=== PATIENT | female | born 1955 | race Caucasian/White ===

== ENCOUNTER → 2016-09-07 | Outpatient (CLI) | payer BC ==
--- NOTE | 2016-09-07 11:42 | REPMRS ---
Patient History The patient states she had a clinical breast exam in 08/2016. Patient is postmenopausal. Family history of colorectal cancer in sister under age 50 and ovarian cancer in mother at age 50 or over. Taking estrogen for 6 years. Digital Woman Screen Mammo: September 07, 2016 - Exam #: [id number] Bilateral CC and MLO view(s) were taken. Technologist: Molly Martínez, Technologist Prior study comparison: July 19, 2015, digital woman screen mammo performed at [facility]. July 20, 2014, digital woman screen mammo performed at [facility]. June 23, 2013, digital woman screen mammo performed at [facility]. FINDINGS: There are scattered fibroglandular densities. There has been no change in the appearance of the mammogram from the prior studies. There is a mild amount of scattered fibroglandular density which is fairly symmetric. There is no interval development of dominant mass, architectural distortion, or clustered microcalcification suggestive of malignancy. ASSESSMENT: BI-RADS/ACR category 1 mammogram. Negative. Recommendation Routine screening mammogram in 1 year (for women over age 40). This mammogram was interpreted with the aid of an FDA-approved computer-aided dectection system. Electronically Signed By: Geovanny Abbott MD 09/07/16 [id number]
== END ==
LOC: M WHC 09:31
PROVIDERS: ATTEND Nurse Practitioner Family
DX: Z12.31 Encounter for screening mammogram for malignant neoplasm of breast (principal); Z78.0 Asymptomatic menopausal state; Z80.41 Family history of malignant neoplasm of ovary

== ENCOUNTER 2017-07-08 08:53 | Inpatient (IN) | payer BC ==
[2017-06-21 10:03] VITALS: BP 132/80
--- NOTE | 2017-07-04 23:06 | HPE ---
DATE OF SCHEDULED ADMISSION: 07/08/2017 PREOP HISTORY AND PHYSICAL CHIEF COMPLAINT: Right knee pain. HISTORY OF PRESENT ILLNESS: Laura is a pleasant 62-year-old female with progressively worsening right knee pain and stiffness. She has failed to improve with conservative treatment. She has elected for surgery for her continued symptoms. She has pain with weightbearing activities and her activities of daily living. X-rays of her knee are notable for advanced osteoarthritis of the right knee joint. She has consented for a right total knee arthroplasty by Dr. Petros Vilchis. Medical optimization was performed by Dr. Gordo Gordon's office. ALLERGIES: No known allergies. CURRENT MEDICATIONS: - omeprazole 40 mg a day - lisinopril 10 mg a day - vitamin D 2000 units a day - multivitamin once a day - flaxseed oil PAST MEDICAL HISTORY: Includes high blood pressure and acid reflux. PAST SURGICAL HISTORY: Includes total hysterectomy and finger and ankle surgery. 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 FAMILY HISTORY: Noncontributory. REVIEW OF SYSTEMS: This patient denies chest pain, heart palpitations, cough, wheezing, difficulty breathing and shortness breath. She denies abdominal pain, nausea, vomiting, diarrhea or constipation. She denies recent upper respiratory infection or urinary tract infection symptoms. She does complain of persistent pain in her right knee and pain with weightbearing activities in the right knee. PHYSICAL EXAMINATION: General: She is a well-nourished, well-developed, in no acute distress, alert female patient who walks with a moderate limp, favoring the right lower extremity, and does not use assistive devices. Vital signs: She is 5 feet 1 inch tall, weighs 149 pounds with a temperature of 98.3, blood pressure 138/62, pulse of 90 and respirations of 18. Neck was supple without adenopathy or jugular venous distension. There were no carotid bruits appreciated upon auscultation. Lungs were clear to auscultation without rales or wheeze throughout. Heart: Regular rate and rhythm. Abdomen: Bowel sounds were present. Extremities: Examination of the knee revealed intact skin. She had decreased range of motion secondary to pain and stiffness. The limb was neurovascularly intact. LABORATORY DATA: Chest x-ray Showed no acute cardiopulmonary disease processes. EKG showed sinus rhythm at 66 beats per minute. UA showed 3+ leukocyte esterase, 1+ blood, 21 white blood cells and 5 red blood cells, otherwise within normal limits with a specific gravity of 1.015. Pro-time 12.9, INR 0.97, glucose 84, BUN 16, creatinine 0.85. Sodium 142, potassium 4.4. CBC was within normal limits. Sedimentation rate was 9. Urine culture showed no clinically significant growth. Nasal and sinus culture showed normal reji. IMPRESSION: Symptomatic osteoarthritis of the right knee joint. PLAN: Consented for a right total knee arthroplasty by Dr. Petros Vilchis.
[2017-07-08] VITALS (7 sets, daily range): BP systolic 116–140; BP diastolic 70–92; O2SAT 97
[~2017-07-08] VITALS: Ht 154.9 cm; Wt 67.8 kg
[~2017-07-08 08:53] MED LIST: FLAXOIL3 PO; LISI10TA4 PO; OMEP40CA2 PO; VITA200016 PO
[2017-07-08] MEDS ORDERED: ACETAMINOPHEN 500 MG TAB PO ONE (09:00)
[2017-07-08] MEDS ORDERED: LR 1,000 ML IV ONE (09:00)
[2017-07-08] MEDS: OMEPRAZOLE 20 MG CAP PO SCH (09:00)
[2017-07-08] MEDS ORDERED: MIDAZOLAM INJ 2 MG/2 ML VIAL (J2250) As Ordered ONE ×2 (10:47→12:48)
[2017-07-08] MEDS ORDERED: fentaNYL 100 MCG/2 ML INJECTION (J3010) As Ordered ONE ×2 (10:47→12:48)
[2017-07-08] MEDS ORDERED: BUPIVACAINE LIPOSOME/PF 1.3% 20 ML VIAL (13.3MG/ML)(EXPAREL) As Ordered ONE (11:00)
[2017-07-08] MEDS ORDERED: EPINEPHrine INJ 1 MG/ML 1ML AMP As Ordered ONE (11:00)
[2017-07-08] MEDS ORDERED: ceFAZolin 1GM INJ (J0690) As Ordered ONE (11:00)
[2017-07-08] MEDS ORDERED: TRANEXAMIC ACID 100 MG/ML 10ML VIAL As Ordered ONE (11:00)
[2017-07-08] MEDS ORDERED: BUPIVACAINE HCL 0.25% 10 ML VIAL As Ordered ONE (11:24)
[2017-07-08] MEDS ORDERED: MIDAZOLAM INJ 2 MG/2 ML VIAL (J2250) IV ONE (11:30)
[2017-07-08] MEDS ORDERED: fentaNYL 100 MCG/2 ML INJECTION (J3010) IV ONE (11:30)
[2017-07-08] MEDS ORDERED: ONDANSETRON 4MG/2ML VIAL (J2405) As Ordered ONE (12:48)
[2017-07-08] MEDS ORDERED: PROPOFOL 200 MG/20 ML VIAL As Ordered ONE (12:48)
[2017-07-08] MEDS ORDERED: LIDOCAINE 2% INJ 100 MG/5 ML SDV (FOR ANES.) As Ordered ONE (12:48)
[2017-07-08] MEDS ORDERED: PHENYLephrine HCL 500 MCG/5 ML (100MCG/ML) SYRINGE (J2370) As Ordered ONE ×2 (12:49→13:05)
[2017-07-08] MEDS ORDERED: ePHEDrine SULFATE 25 MG/5 ML(5MG/ML) SYRINGE As Ordered ONE (13:05)
[2017-07-08] MEDS ORDERED: ROPIvacaine 0.5% 30 ML INJECTION (J2795) ONE (13:08)
[2017-07-08] MEDS ORDERED: dexameTHASONE 10 MG/1 ML VIAL PRES.FREE (J1100) ONE (13:08)
[2017-07-08] MEDS ORDERED: MORPHINE 1MG/ML IN 0.9% NACL 100ML IV BAG As Ordered ONE (14:03)
[2017-07-08] MEDS ORDERED: NALBUPHINE HCL 10 MG/ML AMP (J2300) IV PRN (14:30)
[2017-07-08] MEDS ORDERED: ONDANSETRON 4MG/2ML VIAL (J2405) IV PRN ×2 (14:30)
[2017-07-08] MEDS ORDERED: diphenhydrAMINE INJ 50MG/ML VIAL (J1200) IV PRN (14:30)
[2017-07-08] MEDS ORDERED: MORPHINE 2 MG/ML 1ML SYRINGE IV PRN (14:30)
[2017-07-08] MEDS ORDERED: fentaNYL 100 MCG/2 ML INJECTION (J3010) IV PRN (14:30)
[2017-07-08] MEDS ORDERED: EPIDURAL/PCA KEYS XX PRN (14:30)
[2017-07-08] MEDS ORDERED: ACETAMINOPHEN TAB 650MG DOSE (2X325MG) PO PRN (14:30)
[2017-07-08] MEDS ORDERED: FLEET ENEMA PR PRN (14:30)
[2017-07-08] MEDS ORDERED: LR 1,000 ML IV SCH (14:30)
[2017-07-08] MEDS ORDERED: NALOXONE INJ 0.4 MG/1 ML VIAL (J2310) IV PRN (14:30)
[2017-07-08] MEDS ORDERED: MORPHINE 1MG/ML IN 0.9% NACL 100ML IV BAG IV PRN (14:30)
--- NOTE | 2017-07-08 16:56 | RO ---
DATE OF PROCEDURE: 07/08/2017 PREOPERATIVE DIAGNOSIS: Right knee degenerative arthritis. POSTOPERATIVE DIAGNOSIS: Right knee degenerative arthritis. PROCEDURE: Right total knee arthroplasty using a size 3 cruciate retaining femoral component, a size 2.5 tibial tray with a 32 mm patellar button and a 10 mm rotating platform polyethylene insert. All components were cemented. Prosthesis made by [employer]. It was a PFC knee. SURGEON: Petros Martinez MD BULK FLUIDS HANDLER: Mr. Erasto Greene ANESTHESIA: Spinal with right femoral nerve block. COMPLICATIONS: None. ESTIMATED BLOOD LOSS: Less than 20 mL. DESCRIPTION OF PROCEDURE: Antibiotics were given intravenously preoperatively, then a successful right femoral nerve block and then spinal anesthetic was induced. Then, a tourniquet was placed on the right upper thigh and not inflated. Then, the leg was elevated and after appropriate time-out the tourniquet was inflated. A longitudinal incision was then made for a medial parapatellar approach to the knee. Bovie cautery was used to coagulate the crossing vessels. Medial parapatellar arthrotomy performed. Subperiosteal dissection around the proximal medial and lateral tibia plateaus was then performed. Then, we everted the patella and flexed the knee. A drill was placed down the center of the femoral canal, followed by the distal femoral cutting jig set at 5 degree valgus cut at 10 mm resection level for a right knee. Distal femoral cut was then performed. AP sizing jig measured for a size 3 component, which is pinned in position, followed by the 3 degree external rotation block and then the 4-in-1 block applied. The anterior, posterior chamfer cuts were then performed taking great care to protect the surrounding soft tissues. We then exposed the proximal tibia, made sure we were parallel to the mechanical axis, estimated thereby with extramedullary alignment jig for the tibial cut. We referenced off the medial tibial condyle set at 4 mm resection level. The block was pinned into position at that point, and then the secondary check was made with an extramedullary ben and we did appear to be parallel top the mechanical axis. Proximal tibial osteotomy was then performed. Then, we placed the lamina systems applications programming lead medially and performed a completion lateral meniscectomy with debridement of the posterior lateral osteophytes. We then placed the lamina systems applications programming lead laterally and performed a completion medial meniscectomy and debridement of the posterior medial osteophytes. The spacer block was then applied. The 10 mm actually fit beautifully with good symmetry between flexion and extension spaces there. She was very stable to varus and valgus stress testing both in flexion and extension. We then exposed the proximal tibia, sized for a 2.5 tray, which is pinned into position, followed by the reamer and broach. Then, the trial polyethylene applied. The trial femoral component was applied. We brought the knee into the extension, everted the patella, performed the patellar osteotomy, sized for a 32 button, and then, the trial was placed and the patellofemoral tracking was anatomic. We then drilled the lug holes for the femur. Removed all the trial components and placed Exparel in the periosteal tissues around the femur and the tibia and the capsule, and then the Mr. Alexanderbeverly mixed the cement on the back table as I prepared the bony surfaces for cementing with a copious amount of pulsatile lavage irrigant solution. Once all the components surfaces were thoroughly dried, I cemented the tibial tray and removed excess cement. Placed the polyethylene. Cemented the femoral component and removed excess cement. Brought the knee into extension, cemented the patellar button, removed excess cement and held this position in extension until the cement hardened, and we copiously pulsatile lavage irrigated the knee joint again as we were waiting for the cement to harden. Tranexamic acid was then placed in the knee. Then, we began closing the arthrotomy with two #1 PDS sutures at the apex, one at the medial parapatellar area, then a running #1 Stratafix double armed was used to close the capsule. Tourniquet was then released. We irrigated between layers. Closed the deep subdermal tissues with interrupted #2-0 PDS suture. The skin was closed with carolina and covered by Adaptic, dry sterile bulky dressing. She was then transferred to the recovery room in stable condition. There were no intraoperative complications.
[2017-07-08] MEDS: LR 1,000 ML IV SCH (16:59)
[2017-07-08] MEDS ORDERED: WARFARIN SOD 5 MG TAB PO ONE (17:00)
--- NOTE | 2017-07-08 18:03 | IPNPDOC ---
Subjective Date Seen The patient was seen on 07/08/17. Subjective Chief Complaint/HPI The patient is a 62-year-old female admitted with a reason for visit of Right Knee Arthritis. Events since last encounter No chest pain, no shortness of breath, has lower abdominal pain, trouble passing urine Constitutional: Denies: Chills, Fever Cardiovascular: Denies: Chest Pain Gastrointestinal: Reports: Abdominal Pain, Denies: Nausea, Vomiting Genitourinary: Reports: Retention Objective Physical Examination General Exam: Positive: Alert, Cooperative, No Acute Distress ENT Exam: Positive: Mucous membr. moist/pink Neck Exam: Positive: Supple Chest Exam: Positive: Clear to auscultation, Negative: Rales, Rhonchi, Wheezing Heart Exam: Positive: Rate Normal, Regular Rhythm Abdomen Exam: Positive: BS Hypoactive, Soft, Other (suprapubic fullness and tenderness) Assessment /Plan Problems (1) Arthritis of right knee Status: Acute Problem Text: Pain management, dvt prophylaxis, activity, discharge, gi regimen per ortho. I discussed urinary retention with Ankita Beltran. Will straight cath once. (2) HTN (hypertension) Status: Chronic Problem Specific Plan: Monitor Clinically Problem Text: hold jhoana inhibitor in post op setting (3) GERD (gastroesophageal reflux disease) Status: Chronic Problem Text: continue ppi (4) Hyperlipidemia Problem Text: diet controlled (5) Urinary retention Status: Acute Problem Text: in post op setting, management per ortho. Patient does not have a casper catheter Plan/VTE VTE Prophylaxis Ordered?: Yes VS, I&O, 24H, Fishbone Vital Signs/I&O Vital Signs Date Time Temp Pulse Resp B/P (MAP) Pulse Ox O2 Delivery O2 Flow Rate FiO2 07/08/17 17:30 98.6 85 14 138/76 (96) 97 Room Air 07/08/17 12:05 2 I&O- Last 24 Hours up to 6 AM 07/09/17 06:00 Intake Total 1800 ml Output Total 450 ml Balance 1350 ml GERALD ROSE MD Jul 08, 2017 18:02
[2017-07-08] MEDS: RAMELTEON 8 MG TAB (ROZEREM) PO SCH (23:35)
[2017-07-09 02:00] VITALS: BP 118/70
[2017-07-09] MEDS: LR 1,000 ML IV SCH (02:30)
[2017-07-09 06:00] VITALS: BP 121/84
[2017-07-09] MEDS ORDERED: PERCOCET 5MG/325MG TAB PO PRN (06:30)
[2017-07-09 06:40] LABS: MEAN CORPUSCULAR HEMOGLOBIN 29.9 pg (27.0-33.0); MEAN CORPUSCULAR HGB CONC 35.4 g/dl (32.0-36.5); MEAN CORPUSCULAR VOLUME 84.4 fl (80.0-96.0); PLATELET COUNT, AUTOMATED 199 10^3/uL (150-450); RED CELL DISTRIBUTION WIDTH 12.3 % (11.5-14.5); WHITE BLOOD COUNT 9.9 10^3/uL (4.0-10.0)
[2017-07-09 06:49] LABS: INR 1.16
[2017-07-09 07:20] LABS: ANION GAP 6 MEQ/L (8-16); BLOOD UREA NITROGEN 20 MG/DL (7-18); CALCIUM LEVEL 8.7 MG/DL (8.8-10.2); CARBON DIOXIDE LEVEL 28 MEQ/L (21-32); CHLORIDE LEVEL 105 MEQ/L (98-107); CREATININE FOR GFR 0.92 MG/DL (0.55-1.02); GLOMERULAR FILTRATION RATE > 60.0 (>45); GLUCOSE, FASTING 106 MG/DL (80-110); POTASSIUM SERUM 4.6 MEQ/L (3.5-5.1); SODIUM LEVEL 139 MEQ/L (136-145)
[2017-07-09] MEDS: MIRALAX *UNIT DOSE* 17GM PACKET PO SCH (08:33)
[2017-07-09] MEDS: MOM 30ML SUSPENSION UDC PO SCH (08:33)
[2017-07-09] MEDS: OMEPRAZOLE 20 MG CAP PO SCH (08:33)
[2017-07-09] MEDS: SENOKOT S TAB PO SCH ×2 (08:33→20:52)
[2017-07-09] MEDS: ONDANSETRON 4 MG TAB (S0181) PO PRN ×3 (08:33→20:52)
[2017-07-09] MEDS: LISINOPRIL 10 MG TAB PO SCH (09:00)
[2017-07-09 10:00] VITALS: BP 111/61
--- NOTE | 2017-07-09 10:55 | REP ---
Clinical: Status post knee replacement. Technique AP and cross-table lateral views. Findings: The patient is status post right knee replacement with normal positioning and appearance to the femoral and tibial components. Overlying postsurgical changes appreciated. Impression: Status post right knee replacement. Signed by Darryn Carrillo MD 07/09/2017 10:47 A
--- NOTE | 2017-07-09 11:44 | IPNPDOC ---
Subjective Date Seen The patient was seen on 07/09/17. Subjective Chief Complaint/HPI The patient is a 62-year-old female admitted with a reason for visit of Right Knee Arthritis. Events since last encounter Complains of some nausea this morning . Does not have any appetite, no fever or chills, no chest pain or sob , no abdominal pain or diarrhea. Pain is controlled. Objective Physical Examination General Exam: Positive: Alert, Cooperative, No Acute Distress ENT Exam: Positive: Mucous membr. moist/pink Neck Exam: Positive: Supple Chest Exam: Positive: Clear to auscultation, Negative: Rales, Rhonchi, Wheezing Heart Exam: Positive: Rate Normal, Regular Rhythm Abdomen Exam: Positive: BS Hypoactive, Soft, Other (suprapubic fullness and tenderness) Assessment /Plan Problems (1) S/P total knee arthroplasty Problem Text: For advanced osteoarthritis. Pain management, dvt prophylaxis, activity, discharge, gi regimen per ortho. (2) HTN (hypertension) Status: Chronic Problem Specific Plan: Monitor Clinically Problem Text: will restart lisinopril with hold parameters. (3) GERD (gastroesophageal reflux disease) Status: Chronic Problem Text: continue ppi (4) Hyperlipidemia Problem Text: diet controlled (5) Urinary retention Status: Resolved Problem Text: in post op setting, had straight cath once. Plan/VTE VTE Prophylaxis Ordered?: Yes VS, I&O, 24H, Fishbone Vital Signs/I&O Vital Signs Date Time Temp Pulse Resp B/P (MAP) Pulse Ox O2 Delivery O2 Flow Rate FiO2 07/09/17 11:27 16 07/09/17 10:00 98.0 85 111/61 (78) 96 Room Air 07/08/17 18:19 0.0 I&O- Last 24 Hours up to 6 AM 07/10/17 06:00 Intake Total 230 ml Output Total 200 ml Balance 30 ml Laboratory Data 24H LABS Laboratory Tests 2 07/09/17 06:20: Nucleated Red Blood Cells % (auto) 0.0, Prothrombin Time 15.0H, Prothromb Time International Ratio 1.16, Anion Gap 6L, Glomerular Filtration Rate > 60.0, Blood Urea Nitrogen 20H, Creatinine 0.92, Sodium Level 139, Potassium Level 4.6 , Chloride Level 105, Carbon Dioxide Level 28, Calcium Level 8.7L CBC/BMP Laboratory Tests 07/09/17 06:20 Red Blood Count 4.11, Mean Corpuscular Volume 84.4, Mean Corpuscular Hemoglobin 29.9, Mean Corpuscular Hemoglobin Concent 35.4, Red Cell Distribution Width 12.3 , Calcium Level 8.7 L TORITO ABDUL MD Jul 09, 2017 11:44
[2017-07-09 14:00] VITALS: BP 118/59
[2017-07-09] MEDS: PERCOCET 5MG/325MG TAB PO PRN ×2 (16:22→20:53)
[2017-07-09] MEDS ORDERED: WARFARIN SOD 5 MG TAB PO ONE (17:00)
[2017-07-09] MEDS: RAMELTEON 8 MG TAB (ROZEREM) PO SCH (20:52)
[2017-07-09 22:00] VITALS: BP 129/64
[2017-07-10] MEDS: PERCOCET 5MG/325MG TAB PO PRN ×2 (01:04→06:59)
[2017-07-10] MEDS: ONDANSETRON 4 MG TAB (S0181) PO PRN ×4 (01:18→16:45)
[2017-07-10 06:00] VITALS: BP 128/65
[2017-07-10 06:59] LABS: MEAN CORPUSCULAR HEMOGLOBIN 28.8 pg (27.0-33.0); MEAN CORPUSCULAR HGB CONC 33.4 g/dl (32.0-36.5); MEAN CORPUSCULAR VOLUME 86.2 fl (80.0-96.0); PLATELET COUNT, AUTOMATED 191 10^3/uL (150-450); RED CELL DISTRIBUTION WIDTH 12.5 % (11.5-14.5); WHITE BLOOD COUNT 8.6 10^3/uL (4.0-10.0)
[2017-07-10 07:26] LABS: ANION GAP 5 MEQ/L (8-16); BLOOD UREA NITROGEN 16 MG/DL (7-18); CALCIUM LEVEL 8.8 MG/DL (8.8-10.2); CARBON DIOXIDE LEVEL 31 MEQ/L (21-32); CHLORIDE LEVEL 102 MEQ/L (98-107); GLOMERULAR FILTRATION RATE > 60.0 (>45); GLUCOSE, FASTING 111 MG/DL (80-110); POTASSIUM SERUM 4.7 MEQ/L (3.5-5.1); SODIUM LEVEL 138 MEQ/L (136-145)
[2017-07-10 07:37] LABS: INR 1.46
[2017-07-10 08:00] VITALS: O2SAT 98
[2017-07-10] MEDS ORDERED: COUM2.5T17 PO (08:55)
[2017-07-10] MEDS ORDERED: TRAM50TA2 PO (08:55)
[2017-07-10] MEDS ORDERED: traMADol 50 MG TAB PO PRN (09:00)
[2017-07-10] MEDS ORDERED: ACETAMINOPHEN 500 MG TAB PO PRN (09:00)
[2017-07-10] MEDS: MOM 30ML SUSPENSION UDC PO SCH (09:43)
[2017-07-10] MEDS: SENOKOT S TAB PO SCH ×2 (09:43→19:59)
[2017-07-10] MEDS: MIRALAX *UNIT DOSE* 17GM PACKET PO SCH (09:43)
[2017-07-10] MEDS: OMEPRAZOLE 20 MG CAP PO SCH (09:43)
[2017-07-10] MEDS: LISINOPRIL 10 MG TAB PO SCH (09:44)
--- NOTE | 2017-07-10 10:33 | IPNPDOC ---
Subjective Date Seen The patient was seen on 07/10/17. Subjective Chief Complaint/HPI The patient is a 62-year-old female admitted with a reason for visit of Right Knee Arthritis. Events since last encounter continues to feel nauseous with narcotics, cannot eat much , no fever or chills , no chest pain or sob , no abdominal pain or diarrhea Objective Physical Examination General Exam: Positive: Alert, Cooperative, No Acute Distress ENT Exam: Positive: Mucous membr. moist/pink Neck Exam: Positive: Supple Chest Exam: Positive: Clear to auscultation, Negative: Rales, Rhonchi, Wheezing Heart Exam: Positive: Rate Normal, Regular Rhythm Abdomen Exam: Positive: BS Hypoactive, Soft, Other (suprapubic fullness and tenderness) Assessment /Plan Problems (1) S/P total knee arthroplasty Problem Text: For advanced osteoarthritis. Pain management, dvt prophylaxis, activity, discharge, gi regimen per ortho. (2) HTN (hypertension) Status: Chronic Problem Specific Plan: Monitor Clinically Problem Text: will restart lisinopril with hold parameters. (3) GERD (gastroesophageal reflux disease) Status: Chronic Problem Text: continue ppi (4) Hyperlipidemia Problem Text: diet controlled (5) Urinary retention Status: Resolved Problem Text: in post op setting, had straight cath once. Plan/VTE VTE Prophylaxis Ordered?: Yes VS, I&O, 24H, Fishbone Vital Signs/I&O Vital Signs Date Time Temp Pulse Resp B/P (MAP) Pulse Ox O2 Delivery O2 Flow Rate FiO2 07/10/17 09:44 112/60 07/10/17 07:29 18 Room Air 07/10/17 06:00 97.9 79 96 07/08/17 18:19 0.0 I&O- Last 24 Hours up to 6 AM 07/11/17 06:00 Intake Total 0 ml Output Total 0 ml Balance 0 ml Laboratory Data 24H LABS Laboratory Tests 2 07/10/17 06:19: Nucleated Red Blood Cells % (auto) 0.0, Prothrombin Time 18.1H, Prothromb Time International Ratio 1.46, Anion Gap 5L, Glomerular Filtration Rate > 60.0, Blood Urea Nitrogen 16, Creatinine 0.80, Sodium Level 138, Potassium Level 4.7, Chloride Level 102, Carbon Dioxide Level 31, Calcium Level 8.8 CBC/BMP Laboratory Tests 07/10/17 06:19 Red Blood Count 4.20, Mean Corpuscular Volume 86.2, Mean Corpuscular Hemoglobin 28.8, Mean Corpuscular Hemoglobin Concent 33.4, Red Cell Distribution Width 12.5 , Calcium Level 8.8 TORITO ABDUL MD Jul 10, 2017 10:33
[2017-07-10 14:00] VITALS: BP 131/74
[2017-07-10] MEDS ORDERED: ONDANSETRON 4MG/2ML VIAL (J2405) IV PRN (15:45)
[2017-07-10] MEDS ORDERED: TAPENTADOL 50 MG TABLET (NUCYNTA) PO PRN (15:45)
[2017-07-10] MEDS ORDERED: SCOPOLAMINE 1.5 MG TRANSDERMAL TOP ONE (16:00)
[2017-07-10] MEDS ORDERED: WARFARIN SOD 5 MG TAB PO ONE (17:00)
[2017-07-10] MEDS: RAMELTEON 8 MG TAB (ROZEREM) PO SCH (19:59)
[2017-07-10 21:48] VITALS: O2SAT 95
[2017-07-10 22:00] VITALS: BP 130/73
[2017-07-11 06:00] VITALS: BP 113/76
[2017-07-11 06:36] LABS: MEAN CORPUSCULAR HEMOGLOBIN 28.6 pg (27.0-33.0); MEAN CORPUSCULAR HGB CONC 33.2 g/dl (32.0-36.5); MEAN CORPUSCULAR VOLUME 86.2 fl (80.0-96.0); PLATELET COUNT, AUTOMATED 206 10^3/uL (150-450); RED CELL DISTRIBUTION WIDTH 12.3 % (11.5-14.5); WHITE BLOOD COUNT 8.7 10^3/uL (4.0-10.0)
[2017-07-11 06:55] LABS: ANION GAP 4 MEQ/L (8-16); BLOOD UREA NITROGEN 15 MG/DL (7-18); CALCIUM LEVEL 9.2 MG/DL (8.8-10.2); CARBON DIOXIDE LEVEL 32 MEQ/L (21-32); CHLORIDE LEVEL 100 MEQ/L (98-107); CREATININE FOR GFR 0.85 MG/DL (0.55-1.02); GLOMERULAR FILTRATION RATE > 60.0 (>45); GLUCOSE, FASTING 103 MG/DL (80-110); INR 1.45; POTASSIUM SERUM 4.8 MEQ/L (3.5-5.1); SODIUM LEVEL 136 MEQ/L (136-145)
[2017-07-11] MEDS: SENOKOT S TAB PO SCH (08:00)
[2017-07-11] MEDS: OMEPRAZOLE 20 MG CAP PO SCH (08:00)
[2017-07-11 08:01] VITALS: BP 113/76
[2017-07-11] MEDS: ONDANSETRON 4 MG TAB (S0181) PO PRN (08:01)
[2017-07-11] MEDS: MIRALAX *UNIT DOSE* 17GM PACKET PO SCH (08:01)
[2017-07-11] MEDS: MOM 30ML SUSPENSION UDC PO SCH (08:01)
[2017-07-11] MEDS: LISINOPRIL 10 MG TAB PO SCH (08:01)
[2017-07-11] MEDS ORDERED: LORATADINE 10 MG TAB PO ONE (08:15)
[2017-07-11 09:30] VITALS: O2SAT 97
--- NOTE | 2017-07-15 18:52 | DSES ---
DATE OF ADMISSION: 07/08/2017 DATE OF DISCHARGE: 07/11/2017 ADMISSION DIAGNOSIS: Osteoarthritis right knee. ATTENDING PHYSICIAN: Dr. Petros Vilchis OTHER DIAGNOSES: Hypertension. Gastric reflux disease. Elevated lipids. She did develop urinary retention during her hospital stay. DISCHARGE DIAGNOSIS: Osteoarthritis right knee status post right total knee arthroplasty. OPERATION PERFORMED: Right total knee arthroplasty. HISTORY: This is a pleasant 62-year-old female patient with progressively worsening right knee pain and stiffness. She failed to improve with conservative management. She was admitted for elective knee replacement on right side. HOSPITAL COURSE: The patient was admitted on the day of surgery, underwent a right total knee arthroplasty which was uneventful. During her hospital course, she did develop an episode of urinary retention that resolved with a straight catheter. On the day of discharge, she was doing well, weightbearing as tolerated on her right lower extremity. She will move her right knee to prevent stiffness. She will use adjusted dose Coumadin and thromboembolism deterrent (AMY) stockings for 30 days postoperative for deep vein thrombosis (DVT) prophylaxis. She will resume her preoperative medications and diet. She was given instructions to include but not limited to wound monitoring, activity limitations. She will use oral pain medications for pain control. She will followup in our office in 10-14 days for surgical followup. Please refer the medical record for further detail. Copy To: Dr. Petros Vilchis
== END 2017-07-11 15:30 | disposition home or self-care (01) | DRG 302 ==
LOC: M OR 08:53 → M MS5PR 15:50
PROVIDERS: ADMIT Orthopaedic Surgery; ATTEND Orthopaedic Surgery
PROC: 0SRC0J9 Replacement of Right Knee Joint with Synthetic Substitute, Cemented, Open Approach (ICD-10-PCS; principal; 2017-07-08 12:45)
DX: M17.11 Unilateral primary osteoarthritis, right knee (principal); I10 Essential (primary) hypertension; E78.5 Hyperlipidemia, unspecified; K21.9 Gastro-esophageal reflux disease without esophagitis; Z79.899 Other long term (current) drug therapy

== ENCOUNTER → 2018-05-15 | Outpatient (REF) | payer BC | LOC: M SFHCWAGY 11:35 | DX: R30.0 Dysuria (principal) | CPT/HCPCS: 87086 ==

== ENCOUNTER → 2018-05-15 | Outpatient (CLI) | payer BC | LOC: M WHC 09:34 | DX: Z12.31 Encounter for screening mammogram for malignant neoplasm of breast (principal); Z80.0 Family history of malignant neoplasm of digestive organs; Z78.0 Asymptomatic menopausal state; Z80.41 Family history of malignant neoplasm of ovary; Z79.890 Hormone replacement therapy | CPT/HCPCS: 77067 ==

== ENCOUNTER → 2019-08-13 | Outpatient (CLI) | payer BC, MEDICARE ==
[~2019-08-13] MED LIST changes: +COUM2.5T17 PO; -OMEP40CA2 PO; +OMEP40CA97 PO; +TRAM50TA2 PO
--- NOTE | 2019-08-13 12:26 | REPMRS ---
Patient History The patient states she had a clinical breast exam in July 2019.Family history of ovarian cancer at age 50 or over in mother, colorectal cancer under age 50 in sister. Taking estrogen for 7 years. Digital Woman Screen Mammo: August 13, 2019 - Exam #: [id number] Bilateral CC and MLO view(s) were taken. Technologists: Inessa Martinez, Technologist; Zully Nation, Prior study comparison: May 15, 2018, bilateral digital woman screen mammo performed at [facility]. September 07, 2016, digital woman screen mammo performed at [facility]. July 19, 2015, digital woman screen mammo performed at [facility]. FINDINGS: There are scattered fibroglandular densities. There has been no change in the appearance of the mammogram from the prior studies. There is a mild amount of scattered fibroglandular density which is fairly symmetric. There is no interval development of dominant mass, architectural distortion, or grouped microcalcification suggestive of malignancy. 3-D tomosynthesis shows no additional findings. Assessment: BI-RADS/ACR category 1 mammogram. Negative Mammogram. Recommendation Routine screening mammogram of both breasts in 1 year (for women over age 40). This patient's Lifetime Breast Cancer Risk is estimated at 5.5 %. This mammogram was interpreted with the aid of an FDA-approved computer-aided dectection system. Electronically Signed By: Geovanny Abbott MD 08/13/19 [id number]
== END ==
LOC: M WHC 09:49
PROVIDERS: ATTEND Nurse Practitioner Family
DX: Z12.31 Encounter for screening mammogram for malignant neoplasm of breast (principal); Z80.41 Family history of malignant neoplasm of ovary; Z80.0 Family history of malignant neoplasm of digestive organs; Z92.23 Personal history of estrogen therapy

== ENCOUNTER → 2020-08-16 | Outpatient (CLI) | payer MEDICARE ==
--- NOTE | 2020-08-16 13:56 | REPMRS ---
Patient History The patient states she had a clinical breast exam in 2019. Family history of ovarian cancer at age 50 or over in mother, colorectal cancer under age 50 in sister. Taking estrogen for 7 years. 3D TOMOSYNTHESIS WAS PERFORMED. [facility] Volpara breast density b. Digital Woman Screen Mammo: August 16, 2020 - Exam #: [id number] Bilateral CC and MLO view(s) were taken. Technologist: Kristina Watts, Technologist Prior study comparison: August 13, 2019, bilateral digital woman screen mammo performed at [facility]. May 15, 2018, bilateral digital woman screen mammo performed at [facility]. FINDINGS: There are scattered fibroglandular densities. There has been no change in the appearance of the mammogram from the prior studies. There is a mild amount of residual fibroglandular tissue which is fairly symmetric. There is no interval development of dominant mass, architectural distortion, or clustered microcalcification suggestive of malignancy. Assessment: BI-RADS/ACR category 1 mammogram. Negative Mammogram. Recommendation Routine screening mammogram in 1 year (for women over age 40). This mammogram was interpreted with the aid of an FDA-approved computer-aided dectection system. Electronically Signed By: Andrés Vargas MD 08/16/20 [id number]
== END ==
LOC: M WHC 11:51
PROVIDERS: ATTEND Nurse Practitioner Family
DX: Z12.31 Encounter for screening mammogram for malignant neoplasm of breast (principal); Z80.41 Family history of malignant neoplasm of ovary; Z80.0 Family history of malignant neoplasm of digestive organs; Z92.23 Personal history of estrogen therapy

== ENCOUNTER → 2021-08-29 | Outpatient (CLI) | payer MEDICARE ==
[~2021-08-29] MED LIST changes: +LISI10TA22 PO; -LISI10TA4 PO; +OMEP40CA4 PO; -OMEP40CA97 PO
--- NOTE | 2021-08-29 11:32 | REPMRS ---
Patient History The patient states she had a clinical breast exam on 08-29-2020. Family history of ovarian cancer at age 50 or over in mother, colorectal cancer under age 50 in sister. Taking estrogen for 7 years. Tomosynthesis is performed. Volpara breast density is b. [facility] lifetime risk of breast cancer 4.9%. Patient states no breast complaints today. Patient has signed MRS History Sheet. Digital Woman Screen Mammo: August 29, 2021 - Exam #: [id number] Bilateral CC and MLO view(s) were taken. Technologist: Luz Elena Yuen Metal [employer]ater Prior study comparison: August 16, 2020, bilateral digital woman screen mammo performed at [facility]. August 13, 2019, bilateral digital woman screen mammo performed at [facility]. FINDINGS: There are scattered fibroglandular densities. There has been no change in the appearance of the mammogram from the prior studies. There is a mild amount of residual fibroglandular tissue which is fairly symmetric. There is no interval development of dominant mass, architectural distortion, or clustered microcalcification suggestive of malignancy. Assessment: BI-RADS/ACR category 1 mammogram. Negative Mammogram. Recommendation Routine screening mammogram in 1 year (for women over age 40). This mammogram was interpreted with the aid of an FDA-approved computer-aided dectection system. Electronically Signed By: Andrés Vargas MD 08/29/21 [id number]
== END ==
LOC: M WHC 10:19
PROVIDERS: ATTEND Nurse Practitioner Women's Health
DX: Z01.419 Encounter for gynecological examination (general) (routine) without abnormal findings (principal); Z12.31 Encounter for screening mammogram for malignant neoplasm of breast; Z80.41 Family history of malignant neoplasm of ovary; Z80.0 Family history of malignant neoplasm of digestive organs; Z92.23 Personal history of estrogen therapy

== ENCOUNTER → 2022-09-18 | Outpatient (CLI) | payer MEDICARE | LOC: M WHC 13:28 | PROVIDERS: ATTEND Advanced Practice Midwife | DX: Z12.31 Encounter for screening mammogram for malignant neoplasm of breast (principal) ==

== ENCOUNTER → 2023-09-19 | Outpatient (CLI) | payer MEDICARE | LOC: M WHC 14:21 | PROVIDERS: ATTEND Advanced Practice Midwife | DX: Z01.419 Encounter for gynecological examination (general) (routine) without abnormal findings (principal); Z12.31 Encounter for screening mammogram for malignant neoplasm of breast; Z80.41 Family history of malignant neoplasm of ovary; Z90.710 Acquired absence of both cervix and uterus; Z79.899 Other long term (current) drug therapy | CPT/HCPCS: 77063; 77067; G0101 ==

== ENCOUNTER → 2024-12-29 | Outpatient (REF) | payer MEDICARE ==
[2024-12-29 15:39] LABS: APPEARANCE, URINE HAZY (CLEAR); BACTERIA, URINE AUTO NEGATIVE (NEGATIVE); BILIRUBIN, URINE AUTO NEGATIVE (NEGATIVE); BLOOD, URINE BLOOD NEGATIVE (NEGATIVE); COLOR, URINE YELLOW (YELLOW); GLUCOSE, URINE (UA) AUTO NEGATIVE (NEGATIVE); KETONE, URINE AUTO NEGATIVE (NEGATIVE); LEUKOCYTE ESTERASE, URINE AUTO 3+ (NEGATIVE); MUCUS, URINE SMALL (NEGATIVE); NITRITE, URINE AUTO NEGATIVE (NEGATIVE); PROTEIN, URINE AUTO NEGATIVE (NEGATIVE); RBC, URINE AUTO 2 /HPF (0-3); SPECIFIC GRAVITY URINE AUTO 1.018 (1.002-1.035); SQUAMOUS EPITHELIAL CELL UR AU 1 /HPF (0-6); UROBILINOGEN, URINE AUTO 0.2 mg/dL (0.0-2.0); WBC, URINE AUTO 15 /HPF (0-3)
== END ==
LOC: M SFHCWAGY 15:24
PROVIDERS: ATTEND Advanced Practice Midwife
DX: R35.0 Frequency of micturition (principal)

== ENCOUNTER → 2024-12-29 | Outpatient (CLI) | payer MEDICARE | LOC: M WHC 13:18 | PROVIDERS: ATTEND Advanced Practice Midwife | DX: Z12.31 Encounter for screening mammogram for malignant neoplasm of breast (principal); R92.313 Mammographic fatty tissue density, bilateral breasts ==